=== PATIENT | female | born 1950 | race Caucasian/White ===

== ENCOUNTER → 2016-12-08 | Outpatient (CLI) | payer OTHER ==
--- NOTE | ~2016-12-08 | US5 ---
[facility] A Service of [facility] RADIOLOGY TEXT RESULTS PATIENT: HU RAGSDALE LOCATION: [facility] : 54 UNIT #: [id number] AGE: [address]: Jay Beverly MD SEX: F ORDER DR: [id number] [address] [id number] [facility]. [place], [place] [address] [id number] O MR#: [id number] Acc #: [id number] NAME: HU RAGSDALE : 1950 SEX: F STUDY DATE/TIME: 12/08/2016 10:36 UNIT: [facility] ROOM: STUDY DESCRIPTION: US Abdominal Complete Attending Physician: Jay Beverly M.D. Ordering Physician: Jay Beverly M.D. Primary Care Physician: Jay Beverly M.D. MEDICAL IMAGING REPORT This report is preliminary unless electronic signature is present EXAM Complete abdominal ultrasound 12/08/2016 HISTORY Abdominal bloating for 1 month. Cholecystectomy [address] abdomen 03/13/2009. FINDINGS Portions of the pancreas obscured by bowel gas. The visualized pancreas appears normal. Liver size is within normal limits, 15.5 cm in long axis. No focal liver lesions are identified and the liver demonstrates normal echotexture. Main portal vein is patent. Intrahepatic IVC, to the extent seen, has an unremarkable khan-scale appearance. No ascites is evident. The right kidney measures 10.4 cm and the left kidney measures 9.3 cm in length without focal cortical lesion, demonstrating normal cortical echogenicity. Questionable nonshadowing stone in the left upper renal pole measuring 1 cm. No hydronephrosis. Spleen size is normal, 9.6 cm in length. No ascites is identified. Abdominal aortic caliber is within normal limits, to the extent visualized, measuring about 2.1 cm distally. Gallbladder is surgically absent. No intrahepatic biliary ductal dilation is seen. Common bile duct caliber measures up to 8 mm, just slightly above upper limits normal for the patient's stated age, likely related to previous cholecystectomy. [facility] A Service of [facility] RADIOLOGY TEXT RESULTS PATIENT: HU RAGSDALE LOCATION: [facility] : 54 UNIT #: [id number] AGE: [address]: Jay Beverly MD SEX: F ORDER DR: The technologist took some index images at a site of palpable complaint superior to the umbilicus, but only normal appearing soft tissue findings are demonstrated on the submitted images. IMPRESSION 1. No acute findings in the abdomen. 2. A few index images were obtained of the superficial soft tissues above the level of the umbilicus at the site of patient's palpable complaint, but no solid appearing soft tissue mass is seen. If the patient's symptoms persist, consider correlation with CT. 3. Questionable nonobstructing nonshadowing left upper pole renal stone measuring 1 cm. 4. Common bile duct is slightly above upper limits normal, 8 mm, may simply be related to increased capacitance related to prior cholecystectomy. No intrahepatic biliary ductal dilation is seen. Dictated by... Anny Gonzalez M.D. THIS IS AN ELECTRONICALLY VERIFIED REPORT Anny Gonzalez M.D. at 12/09/2016 5:06 PM ELENA/kuldip TD: 12/09/2016 12:43 JOB #: [id number] MEDICAL IMAGING REPORT Page 1 of 1 COPY
== END | disposition home or self-care (01) ==
LOC: CWCC 10:09
DX: R14.0 Abdominal distension (gaseous) (principal); R10.9 Unspecified abdominal pain
CPT/HCPCS: 76700

== ENCOUNTER → 2016-12-30 | Outpatient (CLI) | payer OTHER ==
--- NOTE | ~2016-12-30 | CT7 ---
[facility] A Service of [facility] RADIOLOGY TEXT RESULTS PATIENT: HU RAGSDALE LOCATION: [facility] : 54 UNIT #: [id number] AGE: [address]: Jay Beverly MD SEX: F ORDER DR: [id number] [facility] [address] [facility]. [place], [place] [address] [id number] O MR#: [id number] Acc #: [id number] NAME: HU RAGSDALE : 1950 SEX: F STUDY DATE/TIME: 12/30/2016 15:34 UNIT: [facility] ROOM: STUDY DESCRIPTION: CT Abdomen Wo Cont Attending Physician: Jay Beverly M.D. Referring Physician: Jay Beverly M.D. Ordering Physician: Jay Beverly M.D. Primary Care Physician: Jay Beverly M.D. MEDICAL IMAGING REPORT This report is preliminary unless electronic signature is present EXAM CT abdomen without contrast INDICATIONS Mid abdominal pain for the past 2 months. Diarrhea and nausea. TECHNIQUE Unenhanced CT of the abdomen and pelvis 03/13/2009. This CT exam was performed with one or more of the following radiation dose reduction techniques: automatic exposure control, adjustment of mA and/or kV according to patient size, and iterative reconstruction. FINDINGS ABDOMEN WITHOUT CONTRAST: The included lung bases are clear. There is a 12 mm cyst in the left lobe of the liver. The spleen, kidneys, adrenal glands are unremarkable. Fat infiltration in the pancreas. Previous cholecystectomy. Included bowel loops are non-dilated. There is a supraumbilical fat-containing hernia that measures 3.5 cm. It has a neck of approximately 1.3 cm. There is a small amount of fluid in the hernia sac. No aggressive appearing bone lesion. IMPRESSION There is a 3.5 cm supraumbilical midline hernia. The hernia sac does contain a small amount of fluid. Correlate with the region of the patient's pain. The hernia sac measures 3.5 cm in diameter. On the sagittal reformats, it measures up to 4 cm in length. Dictated by... [facility] A Service of [facility] RADIOLOGY TEXT RESULTS PATIENT: HU RAGSDALE LOCATION: [facility] #: [id number] : 54 UNIT #: [id number] AGE: [address]: Jay Beverly MD SEX: F ORDER DR: Christiano Darby M.D. THIS IS AN ELECTRONICALLY VERIFIED REPORT Christiano Darby M.D. at 12/31/2016 7:02 AM EED/pcl TD: 12/30/2016 22:34 JOB #: [id number] MEDICAL IMAGING REPORT Page 1 of 1 COPY
== END | disposition home or self-care (01) ==
LOC: CCAT 14:09
DX: R10.32 Left lower quadrant pain (principal); R10.9 Unspecified abdominal pain; K43.9 Ventral hernia without obstruction or gangrene
CPT/HCPCS: 74150